=== PATIENT | female | born 1980 | race Caucasian/White ===

== ENCOUNTER 2016-12-24 08:46 | Inpatient (IN) | payer OTHER ==
[~2016-12-24 08:46] MED LIST: Buffered Lidocaine 0.9% SYRIN* 5 ML/SYR SYRINGE ONE; Oxytocin in LR* 20 UNITS/1,000 ML BAG IVPB ONE; Oxytocin in LR* 20 UNITS/1,000 ML BAG IVPB SCH
[2016-12-24 09:45] LABS: Hematocrit 37 % (35-47); Hemoglobin 12.9 g/dl (12.0-16.0); Mean Corpuscular HGB Conc 35 g/dl (31-36); Mean Corpuscular Hemoglobin 32 pg (27-31); Mean Corpuscular Volume 91 fL (80-97); Mean Platelet Volume 8 um3 (7.4-10.4); Red Blood Count 4.04 10^6/ul (4.0-5.4); Red Cell Distribution Width 14 % (10.5-15); White Blood Count 10.8 10^3/ul (3.5-10.8)
[2016-12-24] MEDS ORDERED: Glycerin ADULT SUPP PR PRN (16:05)
[2016-12-24] MEDS ORDERED: Dibucaine 1% 28.35 GM TUBE PR PRN (16:05)
[2016-12-24] MEDS ORDERED: Witch Hazel PAD* JAR TOPICAL PRN (16:05)
[2016-12-24] MEDS ORDERED: Acetaminophen TAB* 325 MG PO PRN (16:05)
[2016-12-24] MEDS ORDERED: Oxytocin in LR* 20 UNITS/1,000 ML BAG IVPB SCH (17:00)
[2016-12-24] MEDS: Ibuprofen TAB* 600 MG PO PRN ×2 (17:03→23:13)
[2016-12-24] MEDS ORDERED: Simethicone CHEW TAB* 80 MG PO SCH (17:30)
[2016-12-24] MEDS: Docusate CAP* 100 MG PO SCH (21:43)
[2016-12-25] MEDS: Ibuprofen TAB* 600 MG PO PRN ×3 (06:14→17:25)
[2016-12-25 07:22] LABS: Hematocrit 31 % (35-47); Hemoglobin 10.7 g/dl (12.0-16.0); Mean Corpuscular HGB Conc 34 g/dl (31-36); Mean Corpuscular Hemoglobin 31 pg (27-31); Mean Corpuscular Volume 91 fL (80-97); Mean Platelet Volume 8 um3 (7.4-10.4); Red Blood Count 3.44 10^6/ul (4.0-5.4); Red Cell Distribution Width 14 % (10.5-15); White Blood Count 12.4 10^3/ul (3.5-10.8)
[2016-12-25] MEDS: Docusate CAP* 100 MG PO SCH ×3 (08:43→20:20)
[2016-12-25] MEDS: Prenatal Vitamin TAB PO SCH (08:43)
[2016-12-25] MEDS ORDERED: Ferrous Gluconate TAB* 324 MG TAB PO SCH (09:00)
[2016-12-26] MEDS: Ibuprofen TAB* 600 MG PO PRN (02:08)
[2016-12-26 07:33] VITALS: BP 99/74
[2016-12-26] MEDS: Docusate CAP* 100 MG PO SCH (09:04)
[2016-12-26] MEDS: Prenatal Vitamin TAB PO SCH (09:04)
== END 2016-12-26 13:10 | disposition home or self-care (01) | DRG 560 ==
LOC: MCHOBOUT 08:46 → MCHOB 09:43
PROVIDERS: ADMIT Obstetrics & Gynecology; ATTEND Obstetrics & Gynecology
PROC: 10E0XZZ Delivery of Products of Conception, External Approach (ICD-10-PCS; principal; 2016-12-24)
PROC: 3E033VJ Introduction of Other Hormone into Peripheral Vein, Percutaneous Approach (ICD-10-PCS; 2016-12-24)
PROC: 0HQ9XZZ Repair Perineum Skin, External Approach (ICD-10-PCS; 2016-12-24)
DX: O48.0 Post-term pregnancy (principal); O70.0 First degree perineal laceration during delivery; Z3A.41 41 weeks gestation of pregnancy; Z37.0 Single live birth
CPT/HCPCS: 36415; 85025; 86850; 86900; 86901; A9270-GY

== ENCOUNTER → 2018-10-20 14:52 | Emergency (ER) | payer OTHER ==
[2018-10-20 15:43] LABS: ABS Lymphocytes 1.2 10^3/ul (1.0-4.8); ABS Monocytes 0.4 10^3/ul (0-0.8); ABS Neutrophils 7.1 10^3/ul (1.5-7.7); Eosinophil % 0.1 %; Hematocrit 41 % (35-47); Hemoglobin 14.1 g/dL (12.0-16.0); Mean Corpuscular HGB Conc 35 g/dL (31-36); Mean Corpuscular Hemoglobin 31 pg (27-31); Mean Corpuscular Volume 90 fL (80-97); Mean Platelet Volume 7.2 fL (7.4-10.4); Platelet Count 227 10^3/uL (150-450); Red Blood Count 4.54 10^6 /uL (3.70-4.87); Red Cell Distribution Width 12 % (10-15); White Blood Count 8.7 10^3/uL (3.5-10.8)
[2018-10-20 15:58] LABS: ALT 13 U/L (7-52); AST 16 U/L (13-39); Albumin 4.5 g/dL (3.2-5.2); Albumin/Globulin Ratio 1.5 (1-3); Alkaline Phosphatase 72 U/L (34-104); Anion Gap 9 mmol/L (2-11); BUN/Creatinine Ratio 15.4 (8-20); Blood Urea Nitrogen 12 mg/dL (6-24); C Reactive Protein < 1.00 mg/L (<8.01); CO2 Carbon Dioxide 25 mmol/L (22-32); Calcium 9.7 mg/dL (8.6-10.3); Chloride 107 mmol/L (101-111); EGFR African American 99.5 (>60); EGFR Non-African American 82.2 (>60); Globulin 3.1 g/dL (2-4); Glucose 97 mg/dL (70-100); Potassium 3.5 mmol/L (3.5-5.0); Sodium 141 mmol/L (135-145); Total Protein 7.6 g/dL (6.4-8.9)
--- NOTE | 2018-10-20 16:12 | ED ---
Complex/Multi-Sys Presentation - HPI Summary HPI Summary: Patient complains of intermittent sensation of warmth on right side face, right- sided forehead, right arm, right calf times months. Occasional intermittent sensation of warmth on left upper extremity. Denies change in function, limb weakness, MORALES, fever, N/V, speech change, facial droop, focal deficits, trauma, cough, sore throat, ear pain, CP, SOB, abdominal pain, change in urine, change in BM. Does admit to large increase in recent stress, not sleeping well over the past few weeks. Medical history is anxiety.. - History Of Current Complaint Chief Complaint: EDNeurologicalDeficit Time Seen by Provider: 10/20/18 15:14 Hx Obtained From: Patient Onset/Duration: Gradual Onset, Lasting Weeks Timing: Intermittent, Lasting: Severity Currently: Mild Severity Initially: Mild - Allergies/Home Medications Allergies/Adverse Reactions: Allergies Allergy/AdvReac Type Severity Reaction Status Date / Time No Known Allergies Allergy Verified 10/20/18 14:57 PMH/Surg Hx/FS Hx/Imm Hx Endocrine/Hematology History: Denies: Hx Anticoagulant Therapy Cardiovascular History: Denies: Hx Pacemaker/ICD Respiratory History: Reports: Hx Asthma - hx sinusitis (no asthma); lump in left breast History: Denies: Hx Dialysis Sensory History: Denies: Hx Eye Prosthesis Opthamlomology History: Denies: Hx Legally Blind EENT History: Denies: Hx Deafness Neurological History: Denies: Hx Developmental Delay Psychiatric History: Reports: Hx Anxiety - with panic attacks Infectious Disease History: No Infectious Disease History: Denies: Traveled Outside the [place] in Last 30 Days - Family History Known Family History: Positive: None - Social History Alcohol Use: None Substance Use Type: Reports: None Smoking Status (MU): Never Smoked Tobacco Review of Systems Constitutional: Negative Eyes: Negative ENT: Negative Cardiovascular: Negative Respiratory: Negative Gastrointestinal: Negative Genitourinary: Negative Musculoskeletal: Negative Skin: Negative Positive: Paresthesia Psychological: Normal All Other Systems Reviewed And Are Negative: Yes Physical Exam - Summary Physical Exam Summary: Neuro exam normal. Sensation, pulses and function intact on all 4 extremities. ENT exam unremarkable. Triage Information Reviewed: Yes Vital Signs On Initial Exam: Initial Vitals Temp Pulse Resp BP Pulse Ox 98.9 F 97 19 124/88 99 10/20/18 14:54 10/20/18 14:54 10/20/18 14:54 10/20/18 14:54 10/20/18 14:54 Vital Signs Reviewed: Yes Appearance: Positive: Well-Appearing Skin: Positive: Warm Head/Face: Positive: Normal Head/Face Inspection Eyes: Positive: Normal ENT: Positive: Normal ENT inspection Neck: Positive: Supple Respiratory/Lung Sounds: Positive: Clear to Auscultation Cardiovascular: Positive: Normal Abdomen Description: Positive: Nontender Musculoskeletal: Positive: Normal Neurological: Positive: Normal Psychiatric: Positive: Normal AVPU Assessment: Alert - [place] Coma Scale Best Eye Response: 4 - Spontaneous Best Motor Response: 6 - Obeys Commands Best Verbal Response: 5 - Oriented Coma Scale Total: 15 Diagnostics - Vital Signs Vital Signs Temp Pulse Resp BP Pulse Ox 10/20/18 14:54 98.9 F 97 19 124/88 99 - Laboratory Lab Results: Lab Results 10/20/18 10/20/18 Range/Units 15:34 15:34 WBC 8.7 (3.5-10.8) 10^3/uL RBC 4.54 (3.70-4.87) 10^6 /uL Hgb 14.1 (12.0-16.0) g/dL Hct 41 (35-47) % MCV 90 (80-97) fL MCH 31 (27-31) pg MCHC 35 (31-36) g/dL RDW 12 (10-15) % Plt Count 227 (150-450) 10^3/uL MPV 7.2 L (7.4-10.4) fL Neut % (Auto) 81.0 % Lymph % (Auto) 14.0 % [place] % (Auto) 4.6 % Eos % (Auto) 0.1 % Baso % (Auto) 0.3 % Absolute Neuts (auto) 7.1 (1.5-7.7) 10^3/ul Absolute Lymphs (auto) 1.2 (1.0-4.8) 10^3/ul Absolute Monos (auto) 0.4 (0-0.8) 10^3/ul Absolute Eos (auto) 0.0 (0-0.6) 10^3/ul Absolute Basos (auto) 0.0 (0-0.2) 10^3/ul Absolute Nucleated RBC 0.0 10^3/ul Nucleated RBC % 0.0 Sodium 141 (135-145) mmol/L Potassium 3.5 (3.5-5.0) mmol/L Chloride 107 (101-111) mmol/L Carbon Dioxide 25 (22-32) mmol/L Anion Gap 9 (2-11) mmol/L BUN 12 (6-24) mg/dL Creatinine 0.78 (0.51-0.95) mg/dL Est GFR ( Amer) 99.5 (>60) Est GFR (Non-Af Amer) 82.2 (>60) BUN/Creatinine Ratio 15.4 (8-20) Glucose 97 (70-100) mg/dL Calcium 9.7 (8.6-10.3) mg/dL Total Bilirubin 0.50 (0.2-1.0) mg/dL AST 16 (13-39) U/L ALT 13 (7-52) U/L Alkaline Phosphatase 72 (34-104) U/L C-Reactive Protein < 1.00 (<8.01) mg/L Total Protein 7.6 (6.4-8.9) g/dL Albumin 4.5 (3.2-5.2) g/dL Globulin 3.1 (2-4) g/dL Albumin/Globulin Ratio 1.5 (1-3) Result Diagrams: 10/20/18 15:34 10/20/18 15:34 Lab Statement: Any lab studies that have been ordered have been reviewed, and results considered in the medical decision making process. Complex Multi-Symp Course/Dx Course Of Treatment: Patient complains of intermittent sensation of warmth on right side face, right-sided forehead, right arm, right calf times months. Occasional intermittent sensation of warmth on left upper extremity. Denies change in function, limb weakness, MORALES, fever, N/V, speech change, facial droop, focal deficits, trauma, cough, sore throat, ear pain, CP, SOB, abdominal pain, change in urine, change in BM. Does admit to large increase in recent stress, not sleeping well over the past few weeks. Medical history is anxiety.. Physical exam: Neuro exam normal. Sensation, pulses and function intact on all 4 extremities. ENT exam unremarkable. Vital signs within normal limits. Labs unremarkable. Discussed risks versus benefits of CT brain at this time. Patient opted not to have CT at this time. Symptoms likely secondary to recent increase in stress and history of anxiety. Patient agrees to follow up with primary care for further evaluation. - Diagnoses Provider Diagnoses: Numbness and tingling of right arm and leg, Numbness and tingling of right face Discharge - Sign-Out/Discharge Documenting (check all that apply): Patient Departure Patient Received Moderate/Deep Sedation with Procedure: No - Discharge Plan Condition: Stable Disposition: HOME Patient Education Materials: Paresthesia (ED) Referrals: No Primary Care Phys,NOPCP [Primary Care Provider] - Additional Instructions: Follow-up with your primary care for further evaluation. Return to the ED for any new or worsening symptoms. - Billing Disposition and Condition Condition: STABLE Disposition: Home
[2018-10-20 16:21] VITALS: BP 122/80
== END | disposition home or self-care (01) ==
LOC: ED 14:52
DX: R20.0 Anesthesia of skin (principal); R20.2 Paresthesia of skin
CPT/HCPCS: 36415; 80053; 85025; 86140; 99282